=== PATIENT | male | born 1970 | race Caucasian/White ===

== ENCOUNTER → 2021-03-04 | Outpatient (CLI) | payer OTHER ==
[~2021-03-04] MED LIST: CRESTOR40 MG PO; IBUP-1060 PO
== END ==
LOC: LAB 09:36
PROVIDERS: ATTEND Specialist
DX: Z01.812 Encounter for preprocedural laboratory examination (principal); Z20.822 Contact with and (suspected) exposure to COVID-19
CPT/HCPCS: U0003; U0005

== ENCOUNTER 2021-03-05 07:22 | Observation (INO) | payer OTHER ==
[~2021-03-05] VITALS: Ht 182.9 cm; Wt 86.3 kg
[2021-03-05] VITALS (10 sets, daily range): BP systolic 103–123; BP diastolic 58–78
[~2021-03-05 07:22] MED LIST changes: -CRESTOR40 MG PO; +HYDROmorphone 2 MG/ML VIAL IVP PRN; +IV RINGERS,LACTATED 1000ML 1,000 ML IV SCH; +PROCHLORPERAZINE 10 MG/2 ML VIAL. IVP PRN; +fentaNYL PF VIAL 100 MCG/2 ML VIAL IVP PRN
[2021-03-05] MEDS ORDERED: CRESTOR40 MG PO (07:43)
[2021-03-05] MEDS ORDERED: BUPIVACAINE-EPI 0.5%-1:200000 MPF 30 ML VIAL. ONE (08:18)
[2021-03-05 08:22] LABS: BASO # 0.1 x10^3/uL (0.0-0.2); BASO % 1 % (0-3); EOS # 0.3 x10^3/uL (0.0-0.7); EOS % 6 % (0-3); HEMATOCRIT 43.4 % (39.0-53.0); HEMOGLOBIN 14.7 g/dL (13.0-17.5); LYMPH # 1.8 x10^3/uL (1.0-4.8); LYMPH % 29 % (24-48); MEAN CORPUSCULAR HEMOGLOBIN 30 pg (25-35); MEAN CORPUSCULAR HGB CONC 34 g/dL (31-37); MEAN CORPUSCULAR VOLUME 88 fL (79-100); MONO # 0.5 x10^3/uL (0.0-1.1); MONO % 8 % (0-9); NEUT # 3.5 x10^3/uL (1.8-7.7); NEUT % 56 % (31-73); PLATELET COUNT 228 x10^3/uL (140-400); RED BLOOD COUNT 4.92 x10^6/uL (4.30-5.70); RED CELL DISTRIBUTION WIDTH 13.3 % (11.5-14.5); WHITE BLOOD COUNT 6.2 x10^3/uL (4.0-11.0)
[2021-03-05 08:27] LABS: CALCIUM 8.5 mg/dL (8.5-10.1); CREATININE 1.1 mg/dL (0.7-1.3); GFR 71.1; POTASSIUM 4.5 mmol/L (3.5-5.1)
[2021-03-05 08:40] LABS: ALBUMIN 3.4 g/dL (3.4-5.0); ALBUMIN/GLOBULIN RATIO 1.2 (1.0-1.7); TOTAL BILIRUBIN 0.3 mg/dL (0.2-1.0); TOTAL PROTEIN 6.2 g/dL (6.4-8.2)
--- NOTE | 2021-03-05 08:58 | PREOP HP ---
DATE OF SERVICE: 03/05/2021 HISTORY OF PRESENT ILLNESS: The patient is [facility] because of a mass in his right groin. Apparently, he has had this for about 8 months, has seen doctors [facility] and they gave him a truss. He still has this pain sometimes and the mass gets larger and it is not going away. He states it has been for about 8 months. He wishes to have this repaired. PAST MEDICAL HISTORY: Shows normal childhood diseases. He has no high blood pressure, cancer, TB or asthma and takes medication only for hypercholesterolemia. ALLERGIES: He as stated before has no allergies to medications. SOCIAL HISTORY: Does not smoke, drink or use illicit drugs. PHYSICAL EXAMINATION: GENERAL: Shows he is alert, cooperative and in no distress. HEAD, EYES, EARS, NOSE AND THROAT: Grossly normal. CHEST: Clear to auscultation bilaterally. HEART: Had no murmurs, heaves, friction rubs or thrills, and the rate was 70 beats per minute and regular. ABDOMEN: Grossly negative except for a scar from a previous appendectomy that he had in 2008. This was done as standard open appendectomy. EXTERNAL GENITALIA: The testicles in male. Penis normal. Left inguinal area normal. The right had a mass, which increased with increasing intraabdominal pressure. Could reduce it mostly, but not completely. Had minimal tenderness. He has been wearing a truss. EXTREMITIES: Grossly normal. IMPRESSION: 1. Right inguinal hernia, somewhat incarcerated. 2. Hypercholesterolemia. Per his request, we will plan to repair right inguinal hernia at a time that is satisfactory with him. ROSI DR: Edison TID: [id number]
[2021-03-05] MEDS ORDERED: fentaNYL PF VIAL 100 MCG/2 ML VIAL ONE ×2 (09:06→10:49)
[2021-03-05] MEDS ORDERED: NEOSTIGMINE METHYLSULFATE 5 MG/5 ML SYRINGE. ONE (09:06)
[2021-03-05] MEDS ORDERED: MIDAZOLAM HCL/PF 2 MG/2 ML VIAL. ONE (09:06)
[2021-03-05] MEDS ORDERED: ROCURONIUM 50 MG/5 ML VIAL. ONE (09:06)
[2021-03-05] MEDS ORDERED: GLYCOPYRROLATE 1 MG/5 ML VIAL. ONE (09:07)
--- NOTE | 2021-03-05 09:14 | PDOC ---
SURGICAL PROGRESS NOTE DATE: 03/05/21 TIME: 09:13 No change in dictated H&P. Vital Signs Vital Signs Date Time Temp Pulse Resp B/P (MAP) Pulse Ox O2 Delivery O2 Flow Rate FiO2 03/05/21 07:46 98.6 78 20 164/96 97 Room Air 98.6 Labs Laboratory Tests Test 03/05/21 07:50 White Blood Count 6.2 x10^3/uL (4.0-11.0) Red Blood Count 4.92 x10^6/uL (4.30-5.70) Hemoglobin 14.7 g/dL (13.0-17.5) Hematocrit 43.4 % (39.0-53.0) Mean Corpuscular Volume 88 fL (79-100) Mean Corpuscular Hemoglobin 30 pg (25-35) Mean Corpuscular Hemoglobin Concent 34 g/dL (31-37) Red Cell Distribution Width 13.3 % (11.5-14.5) Platelet Count 228 x10^3/uL (140-400) Neutrophils (%) (Auto) 56 % (31-73) Lymphocytes (%) (Auto) 29 % (24-48) Monocytes (%) (Auto) 8 % (0-9) Eosinophils (%) (Auto) 6 % (0-3) Basophils (%) (Auto) 1 % (0-3) Neutrophils # (Auto) 3.5 x10^3/uL (1.8-7.7) Lymphocytes # (Auto) 1.8 x10^3/uL (1.0-4.8) Monocytes # (Auto) 0.5 x10^3/uL (0.0-1.1) Eosinophils # (Auto) 0.3 x10^3/uL (0.0-0.7) Basophils # (Auto) 0.1 x10^3/uL (0.0-0.2) Sodium Level 141 mmol/L (136-145) Potassium Level 4.5 mmol/L (3.5-5.1) Chloride Level 107 mmol/L (98-107) Carbon Dioxide Level 29 mmol/L (21-32) Anion Gap 5 (6-14) Blood Urea Nitrogen 12 mg/dL (8-26) Creatinine 1.1 mg/dL (0.7-1.3) Estimated GFR (Cockcroft-Gault) 71.1 BUN/Creatinine Ratio 11 (6-20) Glucose Level 105 mg/dL (70-99) Calcium Level 8.5 mg/dL (8.5-10.1) Total Bilirubin 0.3 mg/dL (0.2-1.0) Aspartate Amino Transf (AST/SGOT) 10 U/L (15-37) Alanine Aminotransferase (ALT/SGPT) 23 U/L (16-63) Alkaline Phosphatase 35 U/L (46-116) Total Protein 6.2 g/dL (6.4-8.2) Albumin 3.4 g/dL (3.4-5.0) Albumin/Globulin Ratio 1.2 (1.0-1.7) Laboratory Tests Test 03/05/21 07:50 White Blood Count 6.2 x10^3/uL (4.0-11.0) Red Blood Count 4.92 x10^6/uL (4.30-5.70) Hemoglobin 14.7 g/dL (13.0-17.5) Hematocrit 43.4 % (39.0-53.0) Mean Corpuscular Volume 88 fL (79-100) Mean Corpuscular Hemoglobin 30 pg (25-35) Mean Corpuscular Hemoglobin Concent 34 g/dL (31-37) Red Cell Distribution Width 13.3 % (11.5-14.5) Platelet Count 228 x10^3/uL (140-400) Neutrophils (%) (Auto) 56 % (31-73) Lymphocytes (%) (Auto) 29 % (24-48) Monocytes (%) (Auto) 8 % (0-9) Eosinophils (%) (Auto) 6 % (0-3) Basophils (%) (Auto) 1 % (0-3) Neutrophils # (Auto) 3.5 x10^3/uL (1.8-7.7) Lymphocytes # (Auto) 1.8 x10^3/uL (1.0-4.8) Monocytes # (Auto) 0.5 x10^3/uL (0.0-1.1) Eosinophils # (Auto) 0.3 x10^3/uL (0.0-0.7) Basophils # (Auto) 0.1 x10^3/uL (0.0-0.2) Sodium Level 141 mmol/L (136-145) Potassium Level 4.5 mmol/L (3.5-5.1) Chloride Level 107 mmol/L (98-107) Carbon Dioxide Level 29 mmol/L (21-32) Anion Gap 5 (6-14) Blood Urea Nitrogen 12 mg/dL (8-26) Creatinine 1.1 mg/dL (0.7-1.3) Estimated GFR (Cockcroft-Gault) 71.1 BUN/Creatinine Ratio 11 (6-20) Glucose Level 105 mg/dL (70-99) Calcium Level 8.5 mg/dL (8.5-10.1) Total Bilirubin 0.3 mg/dL (0.2-1.0) Aspartate Amino Transf (AST/SGOT) 10 U/L (15-37) Alanine Aminotransferase (ALT/SGPT) 23 U/L (16-63) Alkaline Phosphatase 35 U/L (46-116) Total Protein 6.2 g/dL (6.4-8.2) Albumin 3.4 g/dL (3.4-5.0) Albumin/Globulin Ratio 1.2 (1.0-1.7) Justicifation of Admission Dx: Justifications for Admission: Justification of Admission Dx: Yes MONISHA HOUSTON MD Mar 05, 2021 09:14
--- NOTE | 2021-03-05 09:17 | PDOC ---
SURGICAL PROGRESS NOTE DATE: 03/05/21 TIME: 09:14 Op- Note: surgeon..............................................loi Pre and post op diag.............................incarcerated right inguinal hernia Anesthesia..........................................general Procedure...........................................repair right incarc inguinal hernia. drains................................................none Fluids................................................see anesth sheet Blood loss...........................................10cc Condition............................................satisfactory Vital Signs Vital Signs Date Time Temp Pulse Resp B/P (MAP) Pulse Ox O2 Delivery O2 Flow Rate FiO2 03/05/21 07:46 98.6 78 20 164/96 97 Room Air 98.6 Labs Laboratory Tests Test 03/05/21 07:50 White Blood Count 6.2 x10^3/uL (4.0-11.0) Red Blood Count 4.92 x10^6/uL (4.30-5.70) Hemoglobin 14.7 g/dL (13.0-17.5) Hematocrit 43.4 % (39.0-53.0) Mean Corpuscular Volume 88 fL (79-100) Mean Corpuscular Hemoglobin 30 pg (25-35) Mean Corpuscular Hemoglobin Concent 34 g/dL (31-37) Red Cell Distribution Width 13.3 % (11.5-14.5) Platelet Count 228 x10^3/uL (140-400) Neutrophils (%) (Auto) 56 % (31-73) Lymphocytes (%) (Auto) 29 % (24-48) Monocytes (%) (Auto) 8 % (0-9) Eosinophils (%) (Auto) 6 % (0-3) Basophils (%) (Auto) 1 % (0-3) Neutrophils # (Auto) 3.5 x10^3/uL (1.8-7.7) Lymphocytes # (Auto) 1.8 x10^3/uL (1.0-4.8) Monocytes # (Auto) 0.5 x10^3/uL (0.0-1.1) Eosinophils # (Auto) 0.3 x10^3/uL (0.0-0.7) Basophils # (Auto) 0.1 x10^3/uL (0.0-0.2) Sodium Level 141 mmol/L (136-145) Potassium Level 4.5 mmol/L (3.5-5.1) Chloride Level 107 mmol/L (98-107) Carbon Dioxide Level 29 mmol/L (21-32) Anion Gap 5 (6-14) Blood Urea Nitrogen 12 mg/dL (8-26) Creatinine 1.1 mg/dL (0.7-1.3) Estimated GFR (Cockcroft-Gault) 71.1 BUN/Creatinine Ratio 11 (6-20) Glucose Level 105 mg/dL (70-99) Calcium Level 8.5 mg/dL (8.5-10.1) Total Bilirubin 0.3 mg/dL (0.2-1.0) Aspartate Amino Transf (AST/SGOT) 10 U/L (15-37) Alanine Aminotransferase (ALT/SGPT) 23 U/L (16-63) Alkaline Phosphatase 35 U/L (46-116) Total Protein 6.2 g/dL (6.4-8.2) Albumin 3.4 g/dL (3.4-5.0) Albumin/Globulin Ratio 1.2 (1.0-1.7) Laboratory Tests Test 03/05/21 07:50 White Blood Count 6.2 x10^3/uL (4.0-11.0) Red Blood Count 4.92 x10^6/uL (4.30-5.70) Hemoglobin 14.7 g/dL (13.0-17.5) Hematocrit 43.4 % (39.0-53.0) Mean Corpuscular Volume 88 fL (79-100) Mean Corpuscular Hemoglobin 30 pg (25-35) Mean Corpuscular Hemoglobin Concent 34 g/dL (31-37) Red Cell Distribution Width 13.3 % (11.5-14.5) Platelet Count 228 x10^3/uL (140-400) Neutrophils (%) (Auto) 56 % (31-73) Lymphocytes (%) (Auto) 29 % (24-48) Monocytes (%) (Auto) 8 % (0-9) Eosinophils (%) (Auto) 6 % (0-3) Basophils (%) (Auto) 1 % (0-3) Neutrophils # (Auto) 3.5 x10^3/uL (1.8-7.7) Lymphocytes # (Auto) 1.8 x10^3/uL (1.0-4.8) Monocytes # (Auto) 0.5 x10^3/uL (0.0-1.1) Eosinophils # (Auto) 0.3 x10^3/uL (0.0-0.7) Basophils # (Auto) 0.1 x10^3/uL (0.0-0.2) Sodium Level 141 mmol/L (136-145) Potassium Level 4.5 mmol/L (3.5-5.1) Chloride Level 107 mmol/L (98-107) Carbon Dioxide Level 29 mmol/L (21-32) Anion Gap 5 (6-14) Blood Urea Nitrogen 12 mg/dL (8-26) Creatinine 1.1 mg/dL (0.7-1.3) Estimated GFR (Cockcroft-Gault) 71.1 BUN/Creatinine Ratio 11 (6-20) Glucose Level 105 mg/dL (70-99) Calcium Level 8.5 mg/dL (8.5-10.1) Total Bilirubin 0.3 mg/dL (0.2-1.0) Aspartate Amino Transf (AST/SGOT) 10 U/L (15-37) Alanine Aminotransferase (ALT/SGPT) 23 U/L (16-63) Alkaline Phosphatase 35 U/L (46-116) Total Protein 6.2 g/dL (6.4-8.2) Albumin 3.4 g/dL (3.4-5.0) Albumin/Globulin Ratio 1.2 (1.0-1.7) Justicifation of Admission Dx: Justifications for Admission: Justification of Admission Dx: Yes MONISHA HOUSTON MD Mar 05, 2021 09:17
[2021-03-05] MEDS: ceFAZolin SODIUM IV Push 1 GM VIAL. IVP PRN ×2 (09:20→12:19)
[2021-03-05] MEDS ORDERED: LIDOCAINE 2% PF 5 ML VIAL. ONE (09:27)
[2021-03-05] MEDS ORDERED: PROPOFOL 10 MG/ML (20ML) VIAL. IV ONE (09:27)
[2021-03-05] MEDS ORDERED: DEXAMETHASONE SOD PHOS 4 MG/ML VIAL ONE (09:27)
[2021-03-05] MEDS ORDERED: ONDANSETRON PF 4 MG/2 ML VIAL. ONE (09:27)
[2021-03-05] MEDS ORDERED: SEVOFLURANE 61 TO 120 MINUTES. IH ONE (11:14)
[2021-03-05] MEDS ORDERED: KETAMINE HCL IN NACL, ISO-OSM 50 MG/5 ML SYRINGE ONE (11:14)
[2021-03-05] MEDS ORDERED: BUPIVACAINE-EPI 0.5%-1:200000 MPF 30 ML VIAL. INJ ONE ×2 (11:22)
[2021-03-05] MEDS ORDERED: DEXMEDETOMIDINE 200 MCG/2 ML VIAL. IV ONE (11:30)
[2021-03-05] MEDS ORDERED: ceFAZolin SODIUM IV Push 1 GM VIAL. IVP PRN (12:15)
[2021-03-05] MEDS ORDERED: KETOROLAC 15 MG/ML VIAL. IVP PRN (12:15)
[2021-03-05] MEDS ORDERED: ONDANSETRON PF 4 MG/2 ML VIAL. IVP PRN (12:15)
[2021-03-05] MEDS ORDERED: NALOXONE 0.4 MG/ML VIAL. IV PRN (12:15)
[2021-03-05] MEDS ORDERED: 0.9 % SODIUM CHLORIDE 10 ML DISP.SYRIN. IV PRN (12:15)
[2021-03-05] MEDS: IV NORMAL SALINE 1000ML BAG 1,000 ML IV SCH (12:15)
[2021-03-05] MEDS: IV 1/2 NORMAL SALINE 1,000 ML IV SCH ×2 (12:15→22:15)
[2021-03-05] MEDS ORDERED: KETOROLAC 30 MG/ML VIAL. ONE (12:15)
[2021-03-05] MEDS ORDERED: KETOROLAC 30 MG/ML VIAL. IVP ONE (12:30)
[2021-03-05] MEDS ORDERED: MORPHINE SULFATE 2 MG/ML INJ. ONE ×2 (12:53→13:38)
[2021-03-05] MEDS: MORPHINE SULFATE 2 MG/ML INJ. IVP PRN ×4 (12:54→13:51)
--- NOTE | 2021-03-05 14:05 | NUR ---
Arrived to unit by bed from PACU. Awake and oriented x's 4. Abdominal dressing on RLQ is d/i. No c/o pain at this time. Does have chronic back pain. Instructed how to splint abdomen when getting up . Pt ambulated to bathroom with stand by assist and voided. Return back to bed. SCD's on, IVF's intact and infusing. Oriented to room and controls. Side rails up x's 2 with call light in reach. Cont. monitor.
--- NOTE | 2021-03-05 16:44 | OP ---
DATE OF SURGERY: 03/05/2021 SURGEON: Tee Roberts MD PREOPERATIVE DIAGNOSIS: Incarcerated right inguinal hernia. POSTOPERATIVE DIAGNOSIS: Incarcerated right inguinal hernia. ANESTHESIA: General. PROCEDURE: Repair of incarcerated right inguinal hernia. TECHNIQUE: Under general anesthesia, the patient was properly prepped and draped in routine fashion. The hernia was palpated preoperatively, could not be totally reduced. We used a 15 blade to make an incision following the skin lines in the right groin. We carried this through the skin with the knife. We went through the subcu down to the fascia with the cautery. We then identified the external oblique aponeurosis, made a small opening in the direction of the fibers and then passed scissors in this area spread down and then cut the external aponeurosis all the way down and through the external inguinal ring. The sac and contents were removed from the lateral and medial edges of the aponeurosis of the external oblique and then placing a finger under the cord structures at the pubic tubercle, we went around this and pulled up with a Margo drain. We divided some of the cremasteric fibers. There was quite a bit of a mass in the cord and as such, most of this was preperitoneal fat, but some of it did go back up into the abdomen. We identified the sac and preperitoneal fat mobilized that from the cord. The cord was intact with good blood supply and also had the vas deferens, which could easily be seen. We kept the ilioinguinal nerve undamaged and out of the way. We then having mobilized this away, which were inverted high up into the ilioinguinal ring. Extra large plug was placed there faithly because that is all the hospital had at this point. This was sutured well up into the internal inguinal ring using 3-0 Vicryl. The hernia had been reduced and basically repaired at this point. We did place 1 or 2 sutures of #2-0 Prolene to the very deep edge of the inguinal ligament and also transversalis fascia, so this plug was sutured in place well. We then made an opening in the patch to place over this sutures passed this around the cord and sutured it with 2-0 Prolene, so that the cord would not be constricted or tight. We then pushed this down posterior floor and using two #2-0 Prolene suture started at the pubic tubercle. We sutured this in place with a running suture, taking a deep and shelving edge of Poupart's ligament well up passing into the inguinal ring. The medial one we used 0 Prolene to suture the transversalis fascia which ran this up and over and back to the inguinal ligament. The redundant mesh was excised and patch was in good place. We then used 4-0 Vicryl so the edges would be flat against the anterior abdominal wall. We then injected using 0.5% Marcaine with epinephrine into the surgery area. There was no bleeding and all was well with the hernia repair. We then irrigated the subcutaneous with copious amounts of saline and then approximated the external oblique aponeurosis with a running 0 Prolene suture. Again, we irrigated and then sutured the Carlos's fascia using interrupted 4-0 Vicryl and then closed the skin using a subcuticular 5-0 Vicryl. Sterile Tegaderm dressings were applied and the procedure was terminated. The blood loss was probably 10-15 mL. Fluids given can be obtained from the anesthesia sheet. No drains were used and the condition of the patient was satisfactory as he has returned to the recovery room. COOKIE/HENRY/GLENN DR: Edison TID: [id number]
[2021-03-05] MEDS: FAMOTIDINE 20 MG TABLET. PO SCH (21:00)
[2021-03-05] MEDS ORDERED: ATORVASTATIN CALCIUM 40 MG TABLET. PO SCH (21:23)
[2021-03-05] MEDS ORDERED: IBUPROFEN 200 MG TABLET. PO PRN (21:30)
[2021-03-05] MEDS ORDERED: IBUPROFEN 200 MG TABLET. PO ONE (21:35)
[2021-03-06] MEDS: oxyCODONE/APAP 5/325 1 TAB TABLET PO PRN ×3 (01:25→13:49)
[2021-03-06] MEDS: IV 1/2 NORMAL SALINE 1,000 ML IV SCH (08:15)
[2021-03-06 08:39] VITALS: BP 94/42
[2021-03-06] MEDS: FAMOTIDINE 20 MG TABLET. PO SCH (09:00)
[2021-03-06] MEDS: IV NORMAL SALINE 1000ML BAG 1,000 ML IV SCH (12:15)
--- NOTE | 2021-03-06 14:15 | NUR ---
reviewed Magno's discharge instructions regarding follow up with Dr. Roberts restrictions t9o activities of daily living such as bathing, lifting restrictions. script for Percocet given. verbalized understanding of restrictions. and medications.
--- NOTE | 2021-03-06 15:30 | NUR ---
dismissed to home personal belongings with patient. cell phone script clothing. no questions when asked
== END 2021-03-06 15:30 | disposition home or self-care (01) ==
LOC: SURG 07:22 → 4 SOUTHEST 12:04
PROVIDERS: ADMIT Specialist; ATTEND Specialist
DX: K40.30 Unilateral inguinal hernia, with obstruction, without gangrene, not specified as recurrent (principal); E78.00 Pure hypercholesterolemia, unspecified
CPT/HCPCS: 36415; 49507; 80053; 85025; A4930; A6258; C1781; G0378; G0379; J0690; J1100; J1885; J2250; J2270; J2405; J2704; J2710; J3010; J3490